=== PATIENT | female | born 1990 | race Caucasian/White ===

== ENCOUNTER 2019-10-16 11:20 | Inpatient (IN) ==
[2019-10-16] MEDS ORDERED: NS 0.9% 1000 ml BAG 1,000 ML IV ONE ×3 (12:00→13:22)
[2019-10-16] MEDS ORDERED: Ondansetron 4 mg VIAL 2 MG/ML 2 ml VIAL IV ONE (12:01)
[2019-10-16 12:39] LABS: Hematocrit 48 % (35-47); Hemoglobin 16.3 g/dL (12.0-16.0); Mean Corpuscular HGB Conc 34 g/dL (31-36); Mean Corpuscular Hemoglobin 33 pg (27-31); Mean Corpuscular Volume 97 fL (80-97); Mean Platelet Volume 8.5 fL (7.4-10.4); Platelet Count 332 10^3/uL (150-450); Red Blood Count 4.94 10^6 /uL (3.70-4.87); Red Cell Distribution Width 14 % (10-15); White Blood Count 7.9 10^3/uL (3.5-10.8)
[2019-10-16 12:52] LABS: ABS Basophils 0.1 10^3/ul (0-0.2); ABS Eosinophils 0.1 10^3/ul (0-0.6); ABS Lymphocytes 1.3 10^3/ul (1.0-4.8); ABS Monocytes 0.9 10^3/ul (0-0.8); ABS Neutrophils 5.6 10^3/ul (1.5-7.7); Eosinophil % 0.7 %; Lymphocyte % 16.4 %; Nucleated Red Blood Cells % 0.1
[2019-10-16 13:04] LABS: ALT 10 U/L (7-52); AST 10 U/L (13-39); Albumin 4.7 g/dL (3.2-5.2); Albumin/Globulin Ratio 1.1 (1-3); Alkaline Phosphatase 119 U/L (34-104); BUN/Creatinine Ratio 6.3 (8-20); Blood Urea Nitrogen 5 mg/dL (6-24); Calcium 9.7 mg/dL (8.6-10.3); Chloride 101 mmol/L (101-111); EGFR African American 105.6 (>60); EGFR Non-African American 87.3 (>60); Globulin 4.1 g/dL (2-4); Glucose 312 mg/dL (70-100); Lipase 14 U/L (11.0-82.0); Potassium 3.6 mmol/L (3.5-5.0); Sodium 133 mmol/L (135-145); Total Protein 8.8 g/dL (6.4-8.9)
[2019-10-16 13:06] LABS: Anion Gap 20 mmol/L (2-11); CO2 Carbon Dioxide 12 mmol/L (22-32)
[2019-10-16 13:08] LABS: HCG Pregnancy < 0.60 mIU/mL
[2019-10-16 15:30] LABS: Urine Appearance Clear; Urine Bilirubin Negative (Negative); Urine Blood Negative (Negative); Urine Color Yellow; Urine Glucose 3+(>=500 mg/dL) (Negative); Urine Ketones 2+ (Negative); Urine Nitrite Negative (Negative); Urine Protein 2+(100 mg/dL) (Negative); Urine Specific Gravity 1.027 (1.010-1.030); Urine Urobilinogen Negative (Negative)
[2019-10-16 15:32] LABS: Urine Bacteria 1+ (Absent); Urine Red Blood Cell Trace(0-2/hpf) (Absent); Urine Squamous Epithelial Cell Present (Absent); Urine White Blood Cell Trace(0-5/hpf) (Absent)
[2019-10-16 16:14] LABS: ALT 8 U/L (7-52); Albumin 3.7 g/dL (3.2-5.2); Albumin/Globulin Ratio 1.3 (1-3); Alkaline Phosphatase 82 U/L (34-104); BUN/Creatinine Ratio 6.7 (8-20); Blood Urea Nitrogen 4 mg/dL (6-24); Calcium 7.8 mg/dL (8.6-10.3); Chloride 110 mmol/L (101-111); EGFR African American 145.1 (>60); EGFR Non-African American 119.9 (>60); Globulin 2.9 g/dL (2-4); Glucose 237 mg/dL (70-100); Sodium 138 mmol/L (135-145); Total Protein 6.6 g/dL (6.4-8.9)
[2019-10-16 16:17] LABS: Anion Gap 16 mmol/L (2-11); CO2 Carbon Dioxide 12 mmol/L (22-32)
[2019-10-16] MEDS ORDERED: Insulin Infusion 100unit/100mL 100 UNIT/100 ML BAG IV SCH ×2 (18:00→18:39)
[2019-10-16] MEDS ORDERED: NS 0.45% KCl 20 Meq 1000 ml 1,000 ML IV SCH (18:00)
[2019-10-16 18:01] LABS: Magnesium 1.6 mg/dL (1.9-2.7)
[2019-10-16] MEDS ORDERED: Magnesium Sulfate IV 3 GM in NS 0.9% 100 ml BAG 100 ML IVPB ONE (18:09)
[2019-10-16 19:19] LABS: TSH Ultra Thyroid Stim Horm 1.59 mcIU/mL (0.34-5.60)
[2019-10-16 19:22] LABS: Free T4 0.69 ng/dL (0.61-1.12)
[2019-10-16 19:57] LABS: BUN/Creatinine Ratio 7.1 (8-20); Blood Urea Nitrogen 4 mg/dL (6-24); Chloride 111 mmol/L (101-111); EGFR African American 157.1 (>60); EGFR Non-African American 129.9 (>60); Glucose 176 mg/dL (70-100); Magnesium 1.6 mg/dL (1.9-2.7); Sodium 136 mmol/L (135-145)
[2019-10-16 20:11] LABS: Anion Gap 15 mmol/L (2-11); CO2 Carbon Dioxide 10 mmol/L (22-32)
[2019-10-16] MEDS: D5W 1/2 NS KCl 20 meq 1000 ml 1,000 ML IV SCH (20:15)
[2019-10-16] MEDS: Ondansetron 4 mg VIAL 2 MG/ML 2 ml VIAL IV PRN (20:18)
[2019-10-16 21:10] LABS: Phosphorus 1.6 mg/dL (2.5-5.0)
[2019-10-16 21:16] LABS: UR Microalbumin (mg/L) 25.5 mg/L; Urine Creatinine 33.87 mg/dL; Urine Microalbumin/Creatinine 75.2 (<31)
[2019-10-16] MEDS ORDERED: KCL 20 MEQ/100 ML IVPREMIX 20 MEQ/100 ML BAG IV ONE (22:25)
[2019-10-17 00:02] LABS: EGFR African American 179.1 (>60); Magnesium 2.5 mg/dL (1.9-2.7); Potassium 2.9 mmol/L (3.5-5.0)
[2019-10-17] MEDS ORDERED: Potassium Phosphate IV 5 MMOLE in NS 0.9% 250 ml 250 ML IVPB ONE (01:30)
[2019-10-17] MEDS: D5W 1/2 NS KCl 20 meq 1000 ml 1,000 ML IV SCH (03:01)
[2019-10-17 03:58] LABS: EGFR African American 179.1 (>60); Phosphorus 1.4 mg/dL (2.5-5.0)
[2019-10-17 05:36] LABS: ABS Basophils 0.1 10^3/ul (0-0.2); ABS Eosinophils 0.2 10^3/ul (0-0.6); ABS Lymphocytes 1.9 10^3/ul (1.0-4.8); ABS Monocytes 1.1 10^3/ul (0-0.8); ABS Neutrophils 5.6 10^3/ul (1.5-7.7); Eosinophil % 1.9 %; Hematocrit 37 % (35-47); Hemoglobin 12.9 g/dL (12.0-16.0); Lymphocyte % 21.6 %; Mean Corpuscular HGB Conc 35 g/dL (31-36); Mean Corpuscular Hemoglobin 34 pg (27-31); Mean Corpuscular Volume 95 fL (80-97); Mean Platelet Volume 8.9 fL (7.4-10.4); Platelet Count 265 10^3/uL (150-450); Red Blood Count 3.87 10^6 /uL (3.70-4.87); Red Cell Distribution Width 13 % (10-15); White Blood Count 8.8 10^3/uL (3.5-10.8)
[2019-10-17 07:50] LABS: BUN/Creatinine Ratio 6.3 (8-20); Calcium 7.9 mg/dL (8.6-10.3); EGFR African American 187.7 (>60); EGFR Non-African American 155.1 (>60); Magnesium 1.8 mg/dL (1.9-2.7); Potassium 2.9 mmol/L (3.5-5.0)
[2019-10-17] MEDS ORDERED: Magnesium Sulfate IV 1GM/100ML 1 GM/100 ML BAG IV ONE (08:11)
[2019-10-17] MEDS ORDERED: Dextrose 50% Syringe 50 ml 25 GM/50 ML SYRINGE IV PUSH PRN (08:43)
[2019-10-17] MEDS: KCL 20 MEQ/100 ML IVPREMIX 20 MEQ/100 ML BAG IV SCH ×2 (08:50→14:41)
[2019-10-17] MEDS ORDERED: Insulin GLARGINE 100 un/ml 10 ml VIAL SUBCUT SCH (09:00)
[2019-10-17] MEDS ORDERED: Magnesium Hydroxide LIQ 30 ML UDC PO ONE (11:03)
[2019-10-17] MEDS ORDERED: Potassium Chlor 20 meq TAB.ER PO ONE (13:25)
[2019-10-17] MEDS: Ondansetron 4 mg VIAL 2 MG/ML 2 ml VIAL IV PRN (14:15)
[2019-10-17 14:29] LABS: BUN/Creatinine Ratio 4.2 (8-20); Calcium 8.6 mg/dL (8.6-10.3); EGFR African American 187.7 (>60); EGFR Non-African American 155.1 (>60); Magnesium 1.9 mg/dL (1.9-2.7); Phosphorus 1.5 mg/dL (2.5-5.0)
[2019-10-17] MEDS ORDERED: NS 0.9% 1000 ml BAG 1,000 ML IV ONE (16:41)
[2019-10-17] MEDS ORDERED: Potassium & Sodium Phos 250 mg = 1 PACKET PO ONE (16:43)
[2019-10-17] MEDS ORDERED: KCL 20 MEQ/100 ML IVPREMIX 20 MEQ/100 ML BAG IV SCH (17:00)
[2019-10-17 19:29] LABS: BUN/Creatinine Ratio 3.1 (8-20); Calcium 8.7 mg/dL (8.6-10.3); EGFR African American 134.7 (>60); EGFR Non-African American 111.3 (>60); Potassium 3.9 mmol/L (3.5-5.0)
[2019-10-18 05:08] LABS: BUN/Creatinine Ratio 3.6 (8-20); Calcium 8.7 mg/dL (8.6-10.3); EGFR African American 157.1 (>60); EGFR Non-African American 129.9 (>60); Potassium 3.4 mmol/L (3.5-5.0)
[2019-10-18] MEDS ORDERED: Potassium Chloride LIQUID 20 MEQ/15 ML LIQUID PO ONE (08:35)
[2019-10-18] MEDS ORDERED: Insulin GLARGINE 100 un/ml 10 ml VIAL SUBCUT SCH (09:00)
[2019-10-18 11:41] VITALS: BP 120/81
[2019-10-24 10:17] LABS: Anti GAD 65 Antibody 0.38 nmol/L (<= 0.02)
[2019-10-24 10:21] LABS: Anti GAD 65 Antibody 0.41 nmol/L (<= 0.02)
== END 2019-10-18 16:10 | disposition home or self-care (01) | DRG 420 ==
LOC: ED 11:20 → ICU 11:20 → MED 10-18 09:56
PROVIDERS: ADMIT Internal Medicine; ATTEND Internal Medicine